=== PATIENT | male | born 1960 | race African-American/Black ===

== ENCOUNTER → 2020-02-18 | Outpatient (CLI) | payer OTHER ==
[~2020-02-18] MED LIST: ECOT81TA5 PO; REVL15CA PO
== END ==
LOC: M LABSMTC 11:06
PROVIDERS: ATTEND Anesthesiology
DX: Z03.818 Encounter for observation for suspected exposure to other biological agents ruled out (principal); Z11.59 Encounter for screening for other viral diseases
CPT/HCPCS: C9803; U0003

== ENCOUNTER 2020-02-21 11:24 | Day surgery (SDC) | payer OTHER ==
[~2020-02-21] VITALS: Ht 172.7 cm; Wt 84.2 kg
[~2020-02-21 11:24] MED LIST changes: +LIDOCAINE 2% 100MG/5ML SDV (FOR ANES.) As Ordered ONE; +LR 1,000 ML IV ONE; +MIDAZOLAM INJ 2MG/2ML VIAL (J2250 PER 1MG) As Ordered ONE; +OXYMETAZOLINE NASAL SPRAY (AFRIN) As Ordered ONE; +ROCURONIUM BROMIDE 50 MG/5 ML VIAL As Ordered ONE; +fentaNYL 250 MCG/5 ML INJECTION (J3010) As Ordered ONE; +propofoL 200 MG/20 ML VIAL As Ordered ONE
[2020-02-21] MEDS ORDERED: propofoL 200 MG/20 ML VIAL ONE (11:25)
[2020-02-21] MEDS ORDERED: NALOXONE INJ 0.4MG/1ML VIAL (J2310 PER 1MG) ONE (11:25)
[2020-02-21] MEDS ORDERED: ceFAZolin SOD 2 GM in IV 1 EA IV ONE (12:00)
[2020-02-21] MEDS ORDERED: CHLORHEXIDINE GLUCONATE 0.12 % 15ML UDC (PERIDEX ORAL RINSE) As Ordered ONE (12:20)
[2020-02-21] MEDS ORDERED: LIDOCAINE 2% W/ EPINEPHRINE 1.7 ML DENTAL INJ As Ordered ONE ×2 (12:20→13:09)
[2020-02-21] MEDS ORDERED: SUCCINYLCHOLINE 100 MG/5 ML SYRINGE (J0330) As Ordered ONE ×2 (12:40→13:07)
[2020-02-21] MEDS ORDERED: ONDANSETRON 4MG/2ML VIAL As Ordered ONE (13:06)
[2020-02-21] MEDS ORDERED: dexameTHASONE 4 MG/ML 1ML VIAL (J1100 PER 1MG) As Ordered ONE (13:06)
[2020-02-21] MEDS ORDERED: SUGAMMADEX SODIUM 500 MG/5 ML VIAL (BRIDION) As Ordered ONE (13:30)
[2020-02-21] MEDS ORDERED: ACETAMINOPHEN 1000MG 100ML IV BTL (OFIRMEV) (J0131 PER 10MG) As Ordered ONE (13:47)
[2020-02-21] MEDS ORDERED: PERCOCET 5MG/325MG TAB PO PRN ×2 (15:00)
[2020-02-21] MEDS ORDERED: LR 1,000 ML IV SCH (15:00)
[2020-02-21] MEDS ORDERED: ONDANSETRON 4MG/2ML VIAL IV PRN ×2 (15:00)
[2020-02-21] MEDS ORDERED: METOCLOPRAMIDE INJ 10MG/2ML VIAL (J2765 PER 1) IV PRN (15:00)
[2020-02-21] MEDS ORDERED: IBUPROFEN 600MG TAB PO PRN (15:00)
[2020-02-21] MEDS: LR 1,000 ML IV SCH ×2 (15:00→20:35)
[2020-02-21] MEDS ORDERED: fentaNYL 100 MCG/2 ML INJECTION (J3010) IV PRN (15:00)
[2020-02-21] MEDS ORDERED: FUROSEMIDE 20MG/2ML VIAL (J1940) As Ordered ONE (16:18)
[2020-02-21] MEDS ORDERED: FUROSEMIDE 20MG/2ML VIAL (J1940) IV ONE (16:30)
[2020-02-21 17:26] VITALS: BP 156/71
[2020-02-21 18:00] VITALS: BP 141/74
[2020-02-21 20:00] VITALS: BP 123/65
[2020-02-21] MEDS: dexameTHASONE 4 MG/ML 1ML VIAL (J1100 PER 1MG) IV SCH (20:34)
[2020-02-21 22:00] VITALS: BP 127/69
[2020-02-22] VITALS (7 sets, daily range): BP systolic 102–133; BP diastolic 58–73
[2020-02-22] MEDS: LR 1,000 ML IV SCH (03:29)
--- NOTE | 2020-02-22 04:41 | REP ---
CHEST, SINGLE VIEW: No comparison. Single view of the chest is performed. Diffuse increased interstitial markings are present bilaterally, suggesting interstitial edema or fibrosis. There are no prior studies for comparison. A focal area of increased density in the right lung base represents a more focal area of atelectasis or infiltrate. I cannot exclude very small effusions. Heart is not enlarged. There is mild calcification and tortuosity of the thoracic aorta. Electronically Signed by Artemio Ladd MD 02/25/2020 09:58 P
[2020-02-22] MEDS: dexameTHASONE 4 MG/ML 1ML VIAL (J1100 PER 1MG) IV SCH (05:22)
--- NOTE | 2020-02-28 11:47 | RO ---
DATE OF PROCEDURE: 02/21/2020 PREPROCEDURE DIAGNOSIS: Decayed teeth numbers 1, 2, 3, 4, 5, 6, 7, 8, 10, 11, 12, 13, 14, 15, 16, 20, 30, 31, and 32. POSTPROCEDURE DIAGNOSIS: Decayed teeth numbers 1, 2, 3, 4, 5, 6, 7, 8, 10, 11, 12, 13, 14, 15, 16, 20, 30, 31, and 32. The findings during this surgery were consistent with the preoperative diagnosis. PROCEDURE: Extraction of teeth numbers 1, 2, 3, 4, 5, 6, 7, 8, 10, 11, 12, 13, 14, 15, 16, 20, 30, 31, and 32 with alveoplasty. SURGEON: Steven Christine DDS [employer]INTENA[employer]CE ELECTRICIAN: Genia ANESTHESIA: Anesthesia was provided by Bossman and Dr. Arauz. ESTIMATED BLOOD LOSS: Was 50 mL. There were no drains placed. There were no specimens. The patient received approximately 1000 mL of lactated Ringer during the case. There were no complications. The patient was taken to the postanesthesia care unit (PACU) after the case in stable condition and later discharged to home with postoperative care instructions and a followup appointment. INDICATIONS FOR THE PROCEDURE: Mr. Berlin Avalos is a 59-year-old male who came to [facility] for evaluation after referral for removal of his remaining upper teeth and multiple lower teeth. Mr. Avalos has a history of multiple myeloma, as well as a very small . After learning these things about Mr. Avalos, I recommended that he undergo the procedure in the main operating room, where it would be safer. I explained all the risks, complications, and alternatives of general anesthesia, as well as the surgery that was needed. The patient indicated his understanding and agreed to undergo the procedure in the main operating room. DESCRIPTION OF THE PROCEDURE: The patient was seen and identified in the preoperative holding area. All necessary paperwork was completed. He was taken to operating room #4, where he was placed under general anesthesia via oral endotracheal intubation with some difficulty, and a GlideScope was necessary. After securing the tube, the patient was prepped and draped in a sterile fashion. A time-out was conducted, following which the throat was suctioned clean and dry, and a throat pack was placed. Local anesthetic in the form of 2% lidocaine with 1:100,000 epinephrine was injected along the maxilla and mandible. A total of 8 carpules at 1.7 mL per carpule were used. Following this, a full mucoperiosteal flap was raised along the buccal of all indicated teeth. Multirooted teeth were sectioned, and a buccal trough was created to allow for removal of the root tips and grossly decayed teeth. After removal of the teeth, the bone was smoothed using a rongeur, bone file, and a rotating instrument. After smoothing of the bone in preparation for denture, the area was sterilely irrigated with copious amounts of saline and closed with a #3-0 chromic gut suture in a running fashion. There were no other complications or difficulties during the case. The throat was then suctioned clean and dry, and the throat pack was removed. The patient was allowed to emerge from general anesthesia and did so without any complications. He was taken to the PACU in stable condition and later discharged to home with instructions for postoperative care and followup.
== END 2020-02-22 12:45 | disposition home or self-care (01) ==
LOC: M SDC 11:24 → M ICU 17:26 → M SDC 02-22 12:45
PROVIDERS: ATTEND Dentist
DX: K02.9 Dental caries, unspecified (principal); Z79.899 Other long term (current) drug therapy; Z87.891 Personal history of nicotine dependence; C90.00 Multiple myeloma not having achieved remission; Z92.21 Personal history of antineoplastic chemotherapy
CPT/HCPCS: 71045; 88300; 96361; 96374; 96376; D7210; D7310; D9223; J0131; J0330; J0690; J1100; J1940; J2250; J2310; J2405; J3010